=== PATIENT | male | born 2000 | race Caucasian/White ===

== ENCOUNTER 2022-12-26 16:45 | Emergency (ER) | payer OTHER, MEDICAID ==
[~2022-12-26] VITALS: Ht 177.8 cm; Wt 116.4 kg
[~2022-12-26 16:45] MED LIST: ASPIRIN 81M81 MG/TA2 PO; CEPHALEXIN250 M1 PO; NO HOME MEDICATIONS; NORCO 325 MG-51 TAB PO
[2022-12-26 16:49] VITALS: TEMP 97.7
[2022-12-26] MEDS ORDERED: CEPHALEXIN500 M1 PO (17:16)
[2022-12-26 17:30] VITALS: BP 122/70; PULSE 76
== END 2022-12-26 17:31 | disposition home or self-care (01) ==
LOC: COL.ER 16:45
DX: T25.221A Burn of second degree of right foot, initial encounter (principal); L60.0 Ingrowing nail; T31.0 Burns involving less than 10% of body surface; F17.210 Nicotine dependence, cigarettes, uncomplicated; Z88.1 Allergy status to other antibiotic agents; X12.XXXA Contact with other hot fluids, initial encounter; Y93.G3 Activity, cooking and baking